=== PATIENT | male | born 1940 | race Two or more races ===

== ENCOUNTER 2016-07-25 07:52 | Day surgery (SDC) | payer MEDICARE, OTHER ==
[~2016-07-25] VITALS: Ht 172.7 cm; Wt 90.7 kg
[~2016-07-25 07:52] MED LIST: 0.9% Sodium Chloride 1,000 ML IV SCH; CAPT25TA3 PO; HYDR25TA4 PO; LIP40 PO; METF500T4 PO; Sodium Chloride LOK Flush 10 mL Syringe IV PRN; fentaNYL-PF 50 mCg/mL 2 mL Inj IVPUSH PRN
[2016-07-25 08:27] VITALS: BP 142/92; PULSE 77; RESP 14; O2SAT 97
--- NOTE | 2016-07-25 09:10 | PCM.ENDCOL ---
Colonoscopy Date of Service: Jul 25, 2016 Physician Emigdio Osborne MD Pre Procedure Diagnosis: Screening and history of colon polyp Post Procedure Dx & Findings: Polyp hemorrhoids Procedure Colonoscopy PROCEDURE IN DETAIL: Prep adequate Withdrawal time 12 minutes After unremarkable rectal examination the Olympus video colonoscope was inserted patient's anal canal and was advanced to cecum. Landmarks were identified including the ileocecal valve and appendiceal orifice. Scope was withdrawn systematically. Visualized colonic mucosa showed healthy shiny mucosa with normal healthy-appearing vasculature. Indications transverse colon, there were 2 polyps. Both polyps were One millimeters or less. These were both resected completely using cold forceps. In the descending colon there was another 1 mm polyp which was removed completely using cold forceps. In the rectum retroflexion was done which showed hemorrhoids. Anal canal was inspected carefully on the way out and hemorrhoids noted. Impression Polyps 3 status post complete removal Personal history of colon polyp Hemorrhoids Recommendation Repeat colonoscopy 3 years Presedation Assessment Risks and Benefits Informed consent was obtained from the patient after all risks and benefits including but not limited to drug reaction, infection, pain, bleeding, perforation, as well as alternatives were discussed. Patient monitoring Continuous pulse oximetry, cardiac monitoring, blood pressure monitoring, IV access, and oxygen at 2L per nasal cannula. Periprocedural Fentanyl: Fentanyl 75mcg Incrementally Midazolam: Midazolam 3mg Incrementally Complications There were no periprocedural complications identified. Post Procedure Plan Post Procedure Recommendations 1. Restrict activities today. 2. Resume normal activities in the morning. 3. Resume medications. 4. Patient informed of normal post procedure side effects as bloating, drowsiness, blood streaking in the stool. 5. average risk CRCS. If colon polyps come back as: -Hyperplastic- can repeat colonoscopy in 10 years -Tubular adenoma- repeat colonoscopy in 5 years -Tubulovillous/villous adenoma- repeat colonoscopy in 3 years -If any dysplasia- return to clinic as soon as possible 6. Please don't hesitate to call me with any questions. Emigdio Osborne MD Jul 25, 2016 09:10
[2016-07-25 09:15] VITALS: BP 108/66; PULSE 76; RESP 16; O2SAT 94
[2016-07-25 09:25] VITALS: BP 118/63; PULSE 76; RESP 16; O2SAT 97
[2016-07-25 09:35] VITALS: BP 137/73; PULSE 87; RESP 16; O2SAT 100
--- NOTE | 2016-07-29 11:23 | PATH ---
SURGICAL PATHOLOGY Attending Physician:Emigdio Osborne M.D. CASE STATUS: Signed Out PATIENT NAME: ALMA JOSHI PID: [id number] : 1940 DATE COLLECTED:07/25/2016 16:56 SPECIMEN: 1: Colon, Biopsy 2: Colon, Biopsy CLINICAL HISTORY: 1. TRANSVERSE COLON POLYP X2 2. DESCENDING COLON POLYP X1 FINAL DIAGNOSIS: 1.TRANSVERSE COLON POLYPS: TUBULAR ADENOMA. BENIGN LYMPHOID NODULE. 2.DESCENDING COLON POLYP: TUBULAR ADENOMA. ICD10 D12.6 GROSS DESCRIPTION: The specimen is received in two formalin filled containers labeled with the patient's name. 1). The specimen is sublabeled "transverse colon polyps" and consists of 2 portions of tissue which aggregate to 0.2 x 0.2 x 0.2 CM. The specimen is entirely submitted in cassette 1A. 2). The specimen is sublabeled "descending colon polyp" and consists of a 0.2 x 0.2 x 0.2 CM portion of tissue which is entirely submitted in cassette 2A. 07/25/2016 DAC MICRO DESCRIPTION: See diagnosis. ICD-9 CODES: CPT CODES: 1: 63569 2: 72188 Electronically Signed Out Dax Rawls MD [facility]ology [facility] [address], [place] [address] Technical component performed at [facility], [address] [place] [address] Ave[address], [place], [address]
== END 2016-07-25 23:59 | disposition home or self-care (01) ==
LOC: END 07:52
PROVIDERS: ATTEND Internal Medicine
DX: Z12.11 Encounter for screening for malignant neoplasm of colon (principal); Z86.010 Personal history of colon polyps; D12.3 Benign neoplasm of transverse colon; D12.4 Benign neoplasm of descending colon; K64.9 Unspecified hemorrhoids; I10 Essential (primary) hypertension; E11.9 Type 2 diabetes mellitus without complications; K21.9 Gastro-esophageal reflux disease without esophagitis; Z79.84 Long term (current) use of oral hypoglycemic drugs
CPT/HCPCS: 45380; 88305; 99153; G0500; J7030